=== PATIENT | female | born 1945 | race Caucasian/White ===

== ENCOUNTER → 2025-03-31 14:21 | Outpatient (BNVA) | payer MEDICARE, SELFPAY | PROVIDERS: Visit Provider Nurse Practitioner Family | DX: D48.5 Neoplasm of uncertain behavior of skin (principal); L57.0 Actinic keratosis; L57.8 Other skin changes due to chronic exposure to nonionizing radiation; L82.1 Other seborrheic keratosis; D22.4 Melanocytic nevi of scalp and neck; L82.0 Inflamed seborrheic keratosis; L29.89 Other pruritus; Z78.9 Other specified health status; L53.8 Other specified erythematous conditions | CPT/HCPCS: 17110; 99203 ==

== ENCOUNTER → 2025-04-09 10:56 | Outpatient (BNVA) | payer MEDICARE, SELFPAY | PROVIDERS: Visit Provider Podiatrist Foot & Ankle Surgery | DX: M79.671 Pain in right foot (principal); M20.11 Hallux valgus (acquired), right foot; Q82.8 Other specified congenital malformations of skin | CPT/HCPCS: 73630; 99203 ==